=== PATIENT | male | born 1950 | race Caucasian/White ===

== ENCOUNTER → 2018-08-03 | Outpatient (CLI) | payer MEDICARE, BC ==
--- NOTE | 2018-08-03 16:25 | PCVCIMAG ---
EXAM: NONINVASIVE ARTERIAL EXAMINATION OF BOTH LOWER EXTREMITIES INCLUDING PRE AND POST EXERCISE PRESSURE MEASUREMENTS AND DOPPLER WAVEFORMS INDICATION: Peripheral Arterial Disease. Leg pain. FINDINGS: Right Brachial: 140 mm Hg. Right Dorsalis Pedis: 165 mm Hg. Right Posterior Tibial: 152 mm Hg. Right SARAH = 1.14. Left Brachial: 145 mm Hg. Left Dorsalis Pedis: 160 mm Hg. Left Posterior Tibial: 163 mm Hg. Left SARAH = 1.12. Post Exercise: Left Brachial 155 mm Hg. Right Dorsalis Pedis: 151 mm Hg. Left Posterior Tibial: 183 mm Hg. Right SARAH = 0.97. Left SARAH = 1.18. IMPRESSION: No resting ischemia in the right lower extremity. No exercise induced ischemia in the right lower extremity. No resting ischemia in the left lower extremity. No exercise induced ischemia in the left lower extremity. LOC:[id number]
--- NOTE | 2018-08-03 16:28 | PCVCIMAG ---
EXAM: BILATERAL LOWER EXTREMITY ARTERIAL DUPLEX INDICATION: Peripheral Arterial Disease. Leg pain. FINDINGS: Right Leg: Common femoral and profunda femoral arteries are patent. Superficial femoral artery and popliteal artery are patent. The anterior tibial and peroneal arteries are patent with good arterial waveforms. The posterior tibial artery in its mid and distal portion becomes diminutive in size and this may be developmental in origin. Left Leg: Common femoral and profunda femoral arteries are patent. Superficial femoral artery and popliteal artery are patent. The anterior tibial and peroneal arteries are patent with good arterial waveforms. The posterior tibial artery in its mid and distal portion becomes diminutive in size and this may be developmental in origin. IMPRESSION: The posterior tibial arteries become small in size in the mid and distal portions bilaterally which may be developmental in origin. Otherwise no flow-limiting stenosis seen in either lower extremity. LOC:[id number]
== END | disposition home or self-care (01) ==
LOC: PCVCIMAG 14:41
PROVIDERS: ATTEND Nurse Practitioner Family
DX: E11.51 Type 2 diabetes mellitus with diabetic peripheral angiopathy without gangrene (principal)
CPT/HCPCS: 93923; 93925; 93924